=== PATIENT | male | born 1970 | race Caucasian/White ===

== ENCOUNTER → 2016-12-28 | Outpatient (CLI) | payer OTHER ==
[~2016-12-28] MED LIST: NO MEDICATIONS; OMEPRAZOLE20 M2 PO; TRAMADOL HCL50 M1 PO; VOLTAREN75 MG PO
--- NOTE | ~2016-12-28 | CT57 ---
[facility] A Service of [facility] RADIOLOGY TEXT RESULTS PATIENT: LING MACARIO LOCATION: [facility] : 66 UNIT #: [id number] AGE: [address]: Renu English MD SEX: M ORDER DR: [id number] [facility] [address] [facility] [address]. [place], [place] [address] [id number] O MR#: [id number] Acc #: [id number] NAME: LING MACARIO : 1970 SEX: M STUDY DATE/TIME: 12/28/2016 9:00 UNIT: [facility] ROOM: STUDY DESCRIPTION: CT Chest Wo Cont Attending Physician: Renu English M.D. Referring Physician: Renu English M.D. Ordering Physician: Renu English M.D. Primary Care Physician: Bret Rush Pa-C MEDICAL IMAGING REPORT This report is preliminary unless electronic signature is present EXAM CT of the chest without contrast INDICATION 46-year-old male with shortness of breath for [address] chest performed without contrast. Coronal and sagittal reformatted images obtained. This CT exam was performed with one or more of the following radiation dose reduction techniques: automatic exposure control, adjustment of mA and/or kV according to patient size, and iterative reconstruction. COMPARISON 09/29/2016 FINDINGS Mild emphysema. No suspicious pulmonary nodule or airspace consolidation. Calcified granuloma left lung. Calcified mediastinal and hilar lymph nodes. No pleural effusion. Coronary artery calcifications. Limited imaging of the upper abdomen unremarkable. The bone windows are unremarkable. IMPRESSION Mild emphysema and granulomatous changes. Study is otherwise unremarkable. Dictated by... Celso Martinez M.D. THIS IS AN ELECTRONICALLY VERIFIED REPORT Celso Martinez M.D. at 12/29/2016 8:37 AM [facility] A Service of [facility] RADIOLOGY TEXT RESULTS PATIENT: LING MACARIO LOCATION: [facility] : 66 UNIT #: [id number] AGE: [address]: Renu English MD SEX: M ORDER DR: TD: 12/28/2016 14:44 JOB #: [id number] MEDICAL IMAGING REPORT Page 1 of 1 COPY
== END | disposition home or self-care (01) ==
LOC: CRC 08:08
DX: J44.9 Chronic obstructive pulmonary disease, unspecified (principal); F17.210 Nicotine dependence, cigarettes, uncomplicated; J98.4 Other disorders of lung
CPT/HCPCS: 71250; 94060; 94726; 94729